=== PATIENT | female | born 1940 | race Caucasian/White ===

== ENCOUNTER 2019-01-31 14:11 | Emergency (ER) | payer MEDICARE, OTHER ==
[2019-01-31 14:29] VITALS: TEMP 98.7
[2019-01-31] MEDS ORDERED: SODIUM CHLORIDE 0.9% 1,000 ML IV STA ×2 (14:53)
--- NOTE | 2019-01-31 15:07 | ED ---
Fall HPI - General Chief Complaint: Fall Stated Complaint: Fall Time Seen by Provider: 01/31/19 14:46 Source: EMS, RN notes reviewed, old records reviewed, Caregiver Mode of arrival: EMS Limitations: altered mental status (Dementia) - History of Present Illness Initial Comments: This is a 78-year-old female the ER for fall. Patient presents status post fall today with head injury no blood thinners noted. Patient does have laceration above right eye patient is unable able to give any history. History is obtained by EMS and transferring paperwork MD Complaint: fall -: minutes(s) Fall From: standing When Fall Occurred: unsure Fall Witnessed: yes, by living facility staff Place Fall Occurred: halfway/SNF Loss of Consciousness: none Prolonged Down Time?: no Symptoms Prior to Fall: none Location: head, face Severity: mild Severity scale (1-10): 2 Quality: sharp Context: tripped/slipped Associated Symptoms: denies - Related Data Home Medications Medication Instructions Recorded Confirmed Aspirin EC [Ecotrin Low Dose] 81 mg PO HS 01/31/19 01/31/19 Atorvastatin [Lipitor] 10 mg PO HS 01/31/19 01/31/19 Bisacodyl [Dulcolax] 10 mg RECTAL DAILY PRN 01/31/19 01/31/19 Docusate [Colace] 200 mg PO BID@0700,1600 01/31/19 01/31/19 Ensure 1 can PO BID@0700,1600 01/31/19 01/31/19 Magnesium Hydroxide [Milk of 2,400 mg PO Q72H PRN 01/31/19 01/31/19 Magnesia] Melatonin 6 mg PO HS 01/31/19 01/31/19 Metoprolol Tartrate [Lopressor] 12.5 mg PO BID 01/31/19 01/31/19 Nitrofurantoin Monohyd/M-Cryst 100 mg PO Q12HR 01/31/19 01/31/19 [Macrobid] Polyethylene Glycol 3350 [Miralax] 17 gm PO BID@0700,1600 01/31/19 01/31/19 Sennosides 17.2 mg PO BID 01/31/19 01/31/19 Allergies Allergy/AdvReac Type Severity Reaction Status Date / Time No Known Allergies Allergy Unverified 01/31/19 14:14 Review of Systems ROS Statement: Those systems with pertinent positive or pertinent negative responses have been documented in the HPI. ROS Other: All systems not noted in ROS Statement are negative. Past Medical History Past Medical History: Unable to Obtain History of Any Multi-Drug Resistant Organisms: None Reported Past Surgical History: Unable to Obtain Past Psychological History: No Psychological Hx Reported Smoking Status: Never smoker Past Alcohol Use History: None Reported Past Drug Use History: None Reported General Exam Limitations: no limitations General appearance: alert, in no apparent distress Head exam: Present: normocephalic, normal inspection. Absent: atraumatic (1 cm laceration above right eyebrow well approximated) Eye exam: Present: normal appearance, PERRL, EOMI. Absent: scleral icterus, conjunctival injection, periorbital swelling ENT exam: Present: normal exam, mucous membranes moist Neck exam: Present: normal inspection. Absent: tenderness, meningismus, lymphadenopathy Respiratory exam: Present: normal lung sounds bilaterally. Absent: respiratory distress, wheezes, rales, rhonchi, stridor Cardiovascular Exam: Present: regular rate, normal rhythm, normal heart sounds. Absent: systolic murmur, diastolic murmur, rubs, gallop, clicks GI/Abdominal exam: Present: soft, normal bowel sounds. Absent: distended, tenderness, guarding, rebound, rigid Extremities exam: Present: normal inspection, full ROM, normal capillary refill. Absent: tenderness, pedal edema, joint swelling, calf tenderness Back exam: Present: normal inspection Neurological exam: Present: alert, oriented X3, CN II-XII intact Psychiatric exam: Present: normal affect, normal mood Skin exam: Present: warm, dry, intact, normal color. Absent: rash Course Vital Signs 01/31/19 14:24 Temperature 98.7 F Pulse Rate 64 Respiratory 20 Rate Blood Pressure 139/95 O2 Sat by Pulse 94 L Oximetry Procedures - Laceration Laceration #1 Consent Obtained: verbal consent Indication: laceration Site: face Size (cm): 1 Description: linear Depth: simple, single layer Size of Sutures: other (dermabond) Patient Tolerated Procedure: well Medical Decision Making - Medical Decision Making 78 female the ER for eversion status post fall history is difficult to obtain, patient did have mild laceration above right eye CT scans are negative x-rays are negative labwork is normal patient can be discharged home known urinary tract infection - Lab Data Result diagrams: 01/31/19 15:22 01/31/19 15:22 Lab Results 01/31/19 01/31/19 01/31/19 Range/Units 15:22 15:22 15:22 WBC 7.0 (3.8-10.6) k/uL RBC 4.12 (3.80-5.40) m/uL Hgb 12.5 (11.4-16.0) gm/dL Hct 38.3 (34.0-46.0) % MCV 93.0 (80.0-100.0) fL MCH 30.5 (25.0-35.0) pg MCHC 32.8 (31.0-37.0) g/dL RDW 13.4 (11.5-15.5) % Plt Count 240 (150-450) k/uL Neutrophils % 68 % Lymphocytes % 22 % Monocytes % 6 % Eosinophils % 1 % Basophils % 2 % Neutrophils # 4.8 (1.3-7.7) k/uL Lymphocytes # 1.5 (1.0-4.8) k/uL Monocytes # 0.4 (0-1.0) k/uL Eosinophils # 0.1 (0-0.7) k/uL Basophils # 0.1 (0-0.2) k/uL PT (9.0-12.0) sec INR (<1.2) APTT (22.0-30.0) sec Sodium 139 (137-145) mmol/L Potassium 4.1 (3.5-5.1) mmol/L Chloride 102 (98-107) mmol/L Carbon Dioxide 28 (22-30) mmol/L Anion Gap 9 mmol/L BUN 7 (7-17) mg/dL Creatinine 0.57 (0.52-1.04) mg/dL Est GFR (CKD-EPI)AfAm >90 (>60 ml/min/1.73 sqM) Est GFR (CKD-EPI)NonAf 90 (>60 ml/min/1.73 sqM) Glucose 110 H (74-99) mg/dL Plasma Lactic Acid Kavin 0.8 (0.7-2.0) mmol/L Calcium 9.1 (8.4-10.2) mg/dL Phosphorus 3.3 (2.5-4.5) mg/dL Magnesium 2.1 (1.6-2.3) mg/dL Total Bilirubin 0.6 (0.2-1.3) mg/dL AST 27 (14-36) U/L ALT 20 (9-52) U/L Alkaline Phosphatase 91 (38-126) U/L Troponin I (0.000-0.034) ng/mL NT-Pro-B Natriuret Pep pg/mL Total Protein 6.5 (6.3-8.2) g/dL Albumin 3.7 (3.5-5.0) g/dL 01/31/19 01/31/19 01/31/19 Range/Units 15:22 15:22 15:22 WBC (3.8-10.6) k/uL RBC (3.80-5.40) m/uL Hgb (11.4-16.0) gm/dL Hct (34.0-46.0) % MCV (80.0-100.0) fL MCH (25.0-35.0) pg MCHC (31.0-37.0) g/dL RDW (11.5-15.5) % Plt Count (150-450) k/uL Neutrophils % % Lymphocytes % % Monocytes % % Eosinophils % % Basophils % % Neutrophils # (1.3-7.7) k/uL Lymphocytes # (1.0-4.8) k/uL Monocytes # (0-1.0) k/uL Eosinophils # (0-0.7) k/uL Basophils # (0-0.2) k/uL PT 10.8 (9.0-12.0) sec INR 1.0 (<1.2) APTT 24.7 (22.0-30.0) sec Sodium (137-145) mmol/L Potassium (3.5-5.1) mmol/L Chloride (98-107) mmol/L Carbon Dioxide (22-30) mmol/L Anion Gap mmol/L BUN (7-17) mg/dL Creatinine (0.52-1.04) mg/dL Est GFR (CKD-EPI)AfAm (>60 ml/min/1.73 sqM) Est GFR (CKD-EPI)NonAf (>60 ml/min/1.73 sqM) Glucose (74-99) mg/dL Plasma Lactic Acid Kavin (0.7-2.0) mmol/L Calcium (8.4-10.2) mg/dL Phosphorus (2.5-4.5) mg/dL Magnesium (1.6-2.3) mg/dL Total Bilirubin (0.2-1.3) mg/dL AST (14-36) U/L ALT (9-52) U/L Alkaline Phosphatase (38-126) U/L Troponin I <0.012 (0.000-0.034) ng/mL NT-Pro-B Natriuret Pep 285 pg/mL Total Protein (6.3-8.2) g/dL Albumin (3.5-5.0) g/dL - EKG Data -: EKG Interpreted by Me (EKG shows rhythm of 54, QRS 80, QTC 409) - Radiology Data Radiology results: report reviewed (Brain C-spine chest and pelvis x-ray negative for traumatic injury), image reviewed Disposition Clinical Impression: Fall, Laceration of forehead Disposition: HOME SELF-CARE Condition: Good Instructions (If sedation given, give patient instructions): Fall Prevention for Older Adults (ED), Laceration (ED) Is patient prescribed a controlled substance at d/c from ED?: No Referrals: Bull Herman MD [Primary Care Provider] - 1-2 days
[2019-01-31 15:35] LABS: Basophils # (A) 0.1 k/uL (0-0.2); Basophils % (A) 2 %; Eosinophils # (A) 0.1 k/uL (0-0.7); Eosinophils % (A) 1 %; HCT 38.3 % (34.0-46.0); HGB 12.5 gm/dL (11.4-16.0); Lymphocytes # (A) 1.5 k/uL (1.0-4.8); Lymphocytes % (A) 22 %; MCH 30.5 pg (25.0-35.0); MCHC 32.8 g/dL (31.0-37.0); Mean Platelet Volume 7.2; Monocytes # (A) 0.4 k/uL (0-1.0); Monocytes % (A) 6 %; Neutrophils # (A) 4.8 k/uL (1.3-7.7); Neutrophils % (A) 68 %; Platelet Count 240 k/uL (150-450); RBC 4.12 m/uL (3.80-5.40); RDW 13.4 % (11.5-15.5)
[2019-01-31 15:45] LABS: ALT 20 U/L (9-52); AST 27 U/L (14-36); African American GFR (CKD) >90 (>60 ml/min/1.73 sqM); Albumin 3.7 g/dL (3.5-5.0); Alkaline Phosphatase 91 U/L (38-126); Anion Gap 9 mmol/L; Blood Urea Nitrogen 7 mg/dL (7-17); Calcium 9.1 mg/dL (8.4-10.2); Carbon Dioxide 28 mmol/L (22-30); Chloride 102 mmol/L (98-107); Glucose 110 mg/dL (74-99); Magnesium 2.1 mg/dL (1.6-2.3); Phosphorus 3.3 mg/dL (2.5-4.5); Potassium 4.1 mmol/L (3.5-5.1); Sodium 139 mmol/L (137-145); Total Bilirubin 0.6 mg/dL (0.2-1.3); Total Protein 6.5 g/dL (6.3-8.2)
[2019-01-31 15:46] LABS: Partial Thromboplastin Time 24.7 sec (22.0-30.0); Prothrombin Time 10.8 sec (9.0-12.0)
--- NOTE | 2019-01-31 16:52 | CT ---
EXAMINATION TYPE: CT brain paty vines DATE OF EXAM: 01/31/2019 COMPARISON: None HISTORY: 78-year-old female with pain after Fall. CT DLP: 2045.3 total mGycm Automated exposure control for dose reduction was used. Technique: Examination of the head was done in axial plane without intravenous contrast. Coronal and sagittal reconstructions performed. CT of the cervical spine was obtained in axial plane without intravenous injection of contrast mater ial. Coronal and sagittal reformatted images were obtained from the axial views for evaluation of f ractures, spinal alignment and canal. FINDINGS: Head: There is no evidence of acute intracranial hemorrhage, acute ischemic changes, mass, mass-effect, or extra-axial fluid collection. There is no effacement of cerebral sulci or basal subarachnoid cister ns. There is no hydrocephalus. There is no midline shift. Chahal-white matter distinction is preserv ed. Moderate generalized supratentorial volume loss. Secondary mild ventricular prominence. Moderate atro phy and confluent white matter hypodensities both cerebral hemispheres. Paranasal sinuses and mastoid air cells well pneumatized. Orbits and globes are intact. 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 Cervical spine: Extensive patient motion limits the evaluation. No craniocervical junction abnormality, predental spa ce widening, or prevertebral soft tissue swelling. Preserved alignment of the cervical spine. Moderate degenerative disc disease with disc height loss and disc osteophyte complex formation. Multilevel facet and uncovertebral joint arthropathy. Disc osteophyte complexes likely resultant moderate, possibly moderate to severe spinal canal stenose s at C4-C5 and C5-C6. No acute fracture of the cervical spine identified For the motion artifacts. Variable moderate to severe neuroforaminal stenoses throughout. Sagittal and coronal reformatted images confirm above findings. COMBINED IMPRESSION: 1. Moderate generalized atrophy and changes of chronic small vessel ischemic disease. No acute intrac ranial abnormality seen. 2. Limited assessment of the cervical spine due to patient motion. No definite acute fracture. No mal alignment. 3. Moderate spondylotic change. There may be moderate to severe spinal canal stenoses at C4-C5 and C5 -C6 secondary to disc osteophyte complexes. Additional variable moderate to severe neuroforaminal hortensia noses.
--- NOTE | 2019-01-31 16:54 | CT ---
EXAMINATION TYPE: CT facial bones wo con DATE OF EXAM: 01/31/2019 COMPARISON: None HISTORY: 78-year-old female with pain after Fall. TECHNIQUE: Contiguous axial scanning of the facial bones without IV contrast. Coronal reconstructions performed. CT DLP: 2045.3 mGycm Automated exposure control for dose reduction was used. 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 Paranasal sinuses otherwise well pneumatized. Leftward nasal sep tu deviation. No mandibular fracture. TMJs are intact. Zygomatic arches and pterygoid plates are intact. No nasal b one or facial bone fracture. Orbits and globes are intact. IMPRESSION: NO ACUTE FACIAL BONE FRACTURE SEEN.
[2019-01-31] MEDS ORDERED: TOPICAL SKIN ADHESIVE 1 EACH AMP TOPICAL ONE (17:16)
--- NOTE | 2019-01-31 18:27 | XR ---
EXAMINATION: XR chest 2V DATE AND TIME: 01/31/2019 5:32 PM CLINICAL INDICATION: PHH; Weakness; pain after fall. TECHNIQUE: Departmental protocol COMPARISON: None FINDINGS: The lungs are clear. The pleural spaces are negative. The cardiac silhouette is not enlarged. Thoracic aorta tortuosity noted. The skeletal structures and soft tissues are negative for acute findings. IMPRESSION: NO ACUTE PROCESS.
--- NOTE | 2019-01-31 18:42 | XR ---
PROCEDURE: XR pelvis AP view - 1V DATE AND TIME: 01/31/2019 5:32 PM CLINICAL INDICATION: PHH; pain after fall TECHNIQUE: Department protocol COMPARISON: None FINDINGS: There is no fracture or malalignment. The soft tissues are unremarkable. IMPRESSION: NO ACUTE PROCESS.
[2019-01-31 19:06] VITALS: BP 141/75; PULSE 80; RESP 18
== END 2019-01-31 19:25 | disposition home or self-care (01) ==
LOC: EC 14:11
DX: S01.81XA Laceration without foreign body of other part of head, initial encounter (principal); Z79.82 Long term (current) use of aspirin; Z79.899 Other long term (current) drug therapy; W01.0XXA Fall on same level from slipping, tripping and stumbling without subsequent striking against object, initial encounter; Y92.129 Unspecified place in nursing home as the place of occurrence of the external cause
CPT/HCPCS: 12011; 36415; 70450; 70486; 71046; 72125; 72170; 80053; 83605; 83735; 83880; 84100; 84484; 85025; 85610; 85730; 93005; 96360; 96361; 99285